=== PATIENT | female | born 1935 | race Hispanic/Latino ===

== ENCOUNTER 2024-02-14 17:43 | Emergency (ER) | payer OTHER ==
[~2024-02-14] VITALS: Ht 154.9 cm; Wt 90.7 kg
[2024-02-14 18:27] LABS: BASOPHILS # (AUTO) 0.05 K/uL (0.00-0.20); BASOPHILS % (AUTO) 0.7 % (0.0-5.0); EOSINOPHILS # (AUTO) 0.03 K/uL (0.00-0.70); EOSINOPHILS % (AUTO) 0.4 % (0.0-8.0); HEMATOCRIT 49.2 % (36-48); IMMATURE GRANULOCYTE ABSOLUTE 0.02 K/uL (0-1); LYMPHOCYTES # (AUTO) 1.2 K/uL (1.0-4.8); LYMPHOCYTES % (AUTO) 18.3 % (21.0-51.0); MEAN CORPUSCULAR HEMOGLOBIN 29.8 pg (27.0-33.0); MEAN CORPUSCULAR HGB CONC 33.1 g/dL (32.0-36.0); MEAN CORPUSCULAR VOLUME 89.9 fL (79-99); MONOCYTES # (AUTO) 0.6 K/uL (0.1-1.0); MONOCYTES % (AUTO) 8.8 % (3.0-13.0); NEUTROPHILS # (AUTO) 4.8 K/uL (1.8-7.7); NEUTROPHILS % (AUTO) 71.5 % (40.0-77.0); PLATELET COUNT (AUTO) 165 K/uL (130-400); RED BLOOD CELL COUNT(AUTO) 5.47 MIL/uL (4.00-5.50); RED CELL DISTRIBUTION WIDTH 14.6 % (11.0-15.5); WHITE BLOOD COUNT (AUTO) 6.7 K/uL (4.8-10.8)
[2024-02-14 18:41] VITALS: BP 145/83; PULSE 74; RESP 18; TEMP 98.3; O2SAT 98
[2024-02-14 18:43] LABS: CREATININE 1.3 mg/dL (0.5-1.0); POTASSIUM 3.8 mmol/L (3.5-5.1)
[2024-02-14 18:49] LABS: ALBUMIN 3.7 g/dL (3.5-5.0); BILIRUBIN,DIRECT 0.2 mg/dL (0.0-0.3); MAGNESIUM 2.2 mg/dL (1.80-2.40)
[2024-02-14] MEDS: ASPIRIN 325MG TAB PO ONE (19:04)
[2024-02-14] MEDS: acetaMINOPHEN 500 MG TABLET PO ONE (19:05)
[2024-02-14] MEDS: PANTOPrazole 40 MG/VIAL IVP ONE (19:05)
[2024-02-14] MEDS: NITROGLYCERIN 1GM OINT 1 INCH/1GM TD ONE (19:09)
[2024-02-14 19:16] LABS: B-TYPE NATRIURETIC PEPTIDE 299 pg/mL (0-100)
[2024-02-14] MEDS: ondanSETRON 4MG INJ IVP ONE (20:21)
[2024-02-14] MEDS: LIDOCAINE HCL 2% VISCOUS 15 ML UDCUP PO ONE (20:21)
[2024-02-14] MEDS: MAG/ALUM/SIMETH 30 ML UDCUP PO ONE (20:21)
[2024-02-14] MEDS: DICYCLOMINE HCL 10 MG/5 ML ML PO ONE (20:21)
[2024-02-14] MEDS: morPHINE 2 MG SYG IVP ONE (20:21)
[2024-02-14 22:13] LABS: APPEARANCE,URINE CLEAR (CLEAR); BILIRUBIN,URINE NEGATIVE (NEGATIVE); COLOR,URINE LIGHT-YELLOW (YELLOW); GLUCOSE, URINE (UA) 500 mg/dL (NEGATIVE); KETONES,URINE NEGATIVE (NEGATIVE); LEUKOCYTE ESTERASE ,URINE NEGATIVE Leu/uL (NEGATIVE); NITRATE,URINE NEGATIVE (NEGATIVE); OCCULT BLOOD,URINE NEGATIVE (NEGATIVE); PROTEIN,URINE NEGATIVE (NEGATIVE); UROBILINOGEN,URINE 0.2 mg/dL (0.2-1.0)
[2024-02-14 22:15] LABS: ADD UA MICROSCOPIC YES
[2024-02-14 22:17] LABS: BACTERIA,URINE FEW /HPF (None Seen); MUCUS,URINE RARE LPF (None Seen); SQUAMOUS EPITHELIAL CELL,UR FEW /HPF (0-2)
[2024-02-14] MEDS ORDERED: CEPH500B PO (22:36)
[2024-02-14] MEDS ORDERED: CAPS60CR3 TP (22:36)
[2024-02-14] MEDS: cefTRIAXone 1G VIAL IVPB ONE (22:37)
== END 2024-02-14 22:49 | disposition home or self-care (01) ==
LOC: EDH 17:43
DX: N30.90 Cystitis, unspecified without hematuria (principal); B02.29 Other postherpetic nervous system involvement; R79.89 Other specified abnormal findings of blood chemistry; I10 Essential (primary) hypertension; Z88.5 Allergy status to narcotic agent; Z90.710 Acquired absence of both cervix and uterus
CPT/HCPCS: 99285; 74176; 96374; 96375; 71045; 80076; 83735; 84484; 80048; 83880; 83690; 85025; 81001; 36415; 93005; J2270; J0696; J2405; J2470